=== PATIENT | female | born 1995 | race African-American/Black ===

== ENCOUNTER → 2023-05-24 11:02 | Outpatient (CLI) | payer OTHER, SELFPAY ==
--- NOTE | 2023-05-24 11:03 | DI.US.S_ITS ---
PROCEDURE: US OB <= 14 WEEKS FETUS INDICATIONS: DATING AND VIABILITY OUTSIDE/PRIOR DATING DATA: Last menstrual period (LMP): 03/12/2023. LMP-based estimated date of delivery (JANEE): 12/17/2023. First dating scan (date and location): 05/24/2023. Estimated date of delivery (JANEE) from first dating scan: 12/18/2023. TECHNIQUE: Real-time scanning was performed of the fetus and maternal pelvic organs, with image documentation. COMPARISON: None. FINDINGS: Embryo: Present, measuring 3.4 centimeters, corresponding to 10 weeks 2 days. Heart rate: 173 beats per minute. Maternal organs: Ovaries are unremarkable. IMPRESSION: Single living intrauterine at 10 weeks 2 days, JANEE of 12/18/2023. Findings are concordant with clinical dating. We strive to produce accurate, complete, and clear reports of imaging services. To assist us in improving patient care, this report was composed using standard report templates and voice recognition software. Therefore, it may contain abnormal punctuation, insertions and/or omissions. Occasional wrong-word or sound-alike substitutions may occur. Though we review the report and make efforts to correct it, we do recommend that the report be read carefully in proper context to recognize any text inaccuracies. Dictated by: Israel Walsh M.D. on 05/24/2023 at 12:10 Approved by: Israel Walsh M.D. on 05/24/2023 at 12:11
== END ==
PROVIDERS: Referring Provider Obstetrics & Gynecology; Visit Provider Obstetrics & Gynecology
DX: Z34.81 Encounter for supervision of other normal pregnancy, first trimester (principal); Z3A.10 10 weeks gestation of pregnancy
CPT/HCPCS: 76801

== ENCOUNTER → 2023-06-04 15:06 | Outpatient (CLI) | payer OTHER, SELFPAY ==
[2023-06-04 15:35] LABS: Specimen Label NATERA
[2023-06-04 15:43] LABS: Add Manual Diff / Slide Review NO; Basophils Absolute Auto 0 /uL (0-100); Basophils Percent Auto 0.3 % (0-2); Eosinophils Absolute Auto 100 /uL (0-450); Eosinophils Percent Auto 1.2 % (2-4); Hematocrit 35.3 % (36-46); Hemoglobin 11.8 g/dL (12.0-16.0); Lymphocytes Absolute Auto 2800 /uL (1100-4500); Lymphocytes Percent Auto 30.8 % (25-40); Mean Corpuscular HGB Conc 33.4 % (30-36); Mean Corpuscular Hemoglobin 27.8 PG (26-34); Mean Corpuscular Volume 83.1 fL (80-100); Monocytes Absolute Auto 700 /uL (0-900); Monocytes Percent Auto 7.6 % (3-14); Neutrophils Absolute Auto 5400 /uL (1500-7000); Neutrophils Percent Auto 60.1 % (50-75); Platelet Count 285 X10^3/uL (150-400); Red Blood Cell Count 4.24 X10^6/uL (4.0-5.2); Red Cell Distribution Width 14.9 % (11.6-14.8)
[2023-06-04 16:29] LABS: Hepatitis B Surface Antigen NEGATIVE s/c (NEGATIVE); Rubella Antibody IgG 52.8 IU/mL (>15)
[2023-06-04 16:43] LABS: HIV 1 & 2 Ab/Ag 4th Gen Combo NEGATIVE (NEGATIVE); Hep C Virus Ab w/Reflex Quant NEGATIVE s/c (NEGATIVE)
[2023-06-05 06:03] LABS: RPR Screen Non Reactive (Non Reactive)
[2023-06-05 10:09] LABS: Varicella IgG Antibody 386 index (Immune >165)
== END ==
PROVIDERS: Referring Provider Physician Assistant Medical; Visit Provider Physician Assistant Medical
DX: Z34.81 Encounter for supervision of other normal pregnancy, first trimester (principal)
CPT/HCPCS: 36415; 80055; 86787; 86803; 86850; 86900; 86901; 87389

== ENCOUNTER → 2023-06-28 16:48 | Outpatient (CLI) | payer OTHER, SELFPAY ==
[2023-06-28 17:28] LABS: Appearance Urine UA CLEAR; Bilirubin Urine UA NEGATIVE (NEGATIVE); Color Urine UA YELLOW; Glucose Urine UA NEGATIVE (Negative); Ketones Urine UA NEGATIVE (NEGATIVE); Leukocyte Esterase Urine UA 1+ (NEGATIVE); Nitrite Urine UA NEGATIVE (Negative); Occult Blood Urine UA NEGATIVE (Negative); Protein Urine UA NEGATIVE (Negative); Urobilinogen Urine UA 0.2 E.U./dL (0.2)
[2023-06-28 17:47] LABS: pH Urine UA 5.5 (4.5-8.0)
[2023-06-28 18:15] LABS: Bacteria Urine Few (2-10); RBC Urine None Seen (0-5/HPF); Squamous Epithelial Cell Urine 1-5 /HPF (0-5/HPF); WBC Urine 1-5/HPF (0-5/HPF)
== END ==
PROVIDERS: Referring Provider Obstetrics & Gynecology; Visit Provider Obstetrics & Gynecology
DX: R30.9 Painful micturition, unspecified (principal); R39.15 Urgency of urination; R30.0 Dysuria; Z34.81 Encounter for supervision of other normal pregnancy, first trimester
CPT/HCPCS: 81001; 87086

== ENCOUNTER → 2023-07-02 11:45 | Outpatient (CLI) | payer OTHER, SELFPAY ==
[2023-07-02 12:07] LABS: Specimen Label NATERA
[2023-07-03 15:34] LABS: Candida species Negative (Negative); Gardnerella vaginalis Positive (Negative); Trichomoas vaginalis Negative (Negative)
[2023-07-04 23:24] LABS: AFP Value 29.9 ng/mL (.); Gestational Age EDD (.); Insulin Dep Diabetes No (.); OSBR Risk 1IN 10000 (.); Results Report (.); Test Results *Screen Negative* (.)
[2023-07-05 09:09] LABS: PDF SCANNED
== END ==
PROVIDERS: Referring Provider Physician Assistant Medical; Visit Provider Physician Assistant Medical
DX: Z34.82 Encounter for supervision of other normal pregnancy, second trimester (principal); Z3A.16 16 weeks gestation of pregnancy; N89.8 Other specified noninflammatory disorders of vagina
CPT/HCPCS: 36415; 82105; 87480; 87510; 87660

== ENCOUNTER → 2023-07-18 15:44 | Outpatient (CLI) | payer OTHER, SELFPAY ==
--- NOTE | 2023-07-18 15:45 | DI.RAD.S_ITS ---
PROCEDURE: XR CHEST 2V INDICATIONS: Productive cough x4 weeks TECHNIQUE: 2 views of the chest were acquired. COMPARISON: None. FINDINGS: Surgical changes and devices: None. Lungs and pleura: Lungs are clear. No pleural effusions or pneumothorax. Mediastinum: Mediastinal contours are normal. Heart size is normal. Bones and chest wall: No suspicious bony abnormalities. Soft tissues appear unremarkable. IMPRESSION: No acute cardiopulmonary abnormality is seen. Approved by: Rod Naqvi M.D. on 07/18/2023 at 17:19
== END ==
PROVIDERS: Referring Provider Student in an Organized Health Care Education/Training Program; Visit Provider Student in an Organized Health Care Education/Training Program
DX: R05.8 Other specified cough (principal); Z34.90 Encounter for supervision of normal pregnancy, unspecified, unspecified trimester
CPT/HCPCS: 71046

== ENCOUNTER 2023-07-19 22:34 | Emergency (ER) | payer OTHER, SELFPAY ==
[2023-07-19 22:35] VITALS: BP 138/81; PULSE 124; RESP 20; TEMP 37.4; O2SAT 96; BMI 24.4
[2023-07-19 22:47] VITALS: BP 142/71; PULSE 121; RESP 26; O2SAT 97
[2023-07-19 23:00] VITALS: BP 132/68; PULSE 118; O2SAT 96
--- NOTE | 2023-07-19 23:15 | ED_ITS ---
HPI - General Adult General Chief complaint: Upper Respiratory Symptoms Stated complaint: cough for 1 month Time Seen by Provider: 07/19/23 22:43 Source: patient Mode of arrival: Ambulatory History of Present Illness HPI narrative: 28-year-old female. She is 18 weeks . She is here for evaluation of a cough for the past month. She is not having any vaginal bleeding or vaginal discharge. No other OB related complaints. She did have a chest x-ray yesterday ordered by her OB provider and is scheduled to see her OB provider tomorrow to discuss her cough. She denies any fevers. No underlying lung pathology. She is here because she states that her cough has been bad enough the past couple days she is now having some chest discomfort with the cough. She is having some sinus congestion Related Data Home Medications Medication Instructions Recorded Confirmed vitamin-ferrous sulfate tab PO 05/21/23 07/02/23 27 mg iron-folic acid 0.8 mg tablet Previous Rx's Medication Instructions Recorded ondansetron 4 mg disintegrating 4 mg PO Q6H PRN nausea and 06/28/23 tablet vomiting #30 tabs Allergies Allergy/AdvReac Type Severity Reaction Status Date / Time No Known Drug Allergies Allergy Unverified 07/02/23 10:49 Review of Systems ENT Ears, Nose, Mouth, and Throat: Reports system reviewed and no additional complaints, except as documented Cardiovascular Cardiovascular: Reports system reviewed and no additional complaints, except as documented Respiratory Respiratory: Reports system reviewed and no additional complaints, except as documented Gastrointestinal Gastrointestinal: Reports system reviewed and no additional complaints, except as documented Neurologic Neurologic: Reports system reviewed and no additional complaints, except as documented Patient History Surgical History (Updated 06/03/23 @ 20:09 by Raiza Schilling) Anesthesia History of surgical removal of ganglion cyst (~2012) Family History (Updated 05/21/23 @ 15:35 by Roya West RN) Father Diabetes mellitus Pacemaker Mother Diabetes mellitus Hypertension Osteoarthritis Grandmother Leukemia Social History marital status: number of children: 3 household members: spouse lives independently: No caregiver/support person: Yes housing: house pets and animals: No education level: college occupational status: employed current occupational exposures/hazards: No special garret needs: No travel history: recent seatbelt use: always water heater temp set < 120 deg: Yes working smoke detector in home: Yes fire extinguisher in home: No carbon monox detector in home: Yes firearms in home: No do you feel safe at home: Yes Smoking Status: Never smoker second hand exposure: No alcohol intake: former substance use type: does not use during the past year weight has: increased > 10 lbs well-balanced diet: rarely or never daily servings fruits/ve-1 caffeine: No Type(s) of exercise: walking Smoking Status: Never smoker Substance Use Type: does not use Exam Initial Vital Signs Initial Vital Signs: Vital Signs Temperature 99.3 F 07/19/23 22:35 Pulse Rate 124 H 07/19/23 22:35 Respiratory Rate 20 07/19/23 22:35 Blood Pressure 138/81 07/19/23 22:35 Pulse Oximetry 96 07/19/23 22:35 Oxygen Delivery Method Room Air 07/19/23 22:35 Const General: cooperative, comfortable and No ill appearing HENMT Head: normal to inspection and normocephalic Resp Effort & Inspection: normal respiratory effort, cough, not labored, no respiratory distress and not tachypneic Auscultation: clear to auscultation bilaterally Cardio Rate: tachycardic Rhythm: regular rhythm GI Inspection: normal to inspection Skin General: no rashes or lesions noted Neuro General: patient alert, patient awake and moves all extremities Extrem General: capillary refill normal Course Orders Ordered: ED Orders 07/19/23 22:54 EKG-12 Lead Stat 07/19/23 22:56 Respiratory Panel (Film Array) Stat Vital Signs Vital signs: Vital Signs - 8 hr 07/19/23 22:35 07/19/23 22:47 07/19/23 22:47 Temperature 99.3 F Pulse Rate 124 H 121 H Respiratory Rate 20 26 H Blood Pressure 138/81 142/71 H Pulse Oximetry 96 97 Oxygen Delivery Method Room Air 07/19/23 23:00 07/19/23 23:00 07/19/23 23:30 Temperature Pulse Rate 118 H 113 H Respiratory Rate 32 H Blood Pressure 132/68 Pulse Oximetry 96 97 Oxygen Delivery Method Room Air 07/19/23 23:30 07/19/23 23:41 07/19/23 23:41 Temperature Pulse Rate 117 H Respiratory Rate 22 Blood Pressure 134/71 141/74 H Pulse Oximetry 97 Oxygen Delivery Method Room Air 07/20/23 00:00 07/20/23 00:00 Temperature Pulse Rate 113 H Respiratory Rate Blood Pressure 135/71 Pulse Oximetry 96 Oxygen Delivery Method Medical Decision Making Medical Records Medical records reviewed: Yes I reviewed the patient's medical records. Lab Data Lab results reviewed: Yes I reviewed the patient's lab results. Labs: Lab Results 07/19/23 Range/Units 22:56 Chlamy pneumoniae PCR Not detected (Not Detect) Adenovirus (PCR) Not detected (Not Detect) B.parapertussis DNA PCR Not detected (Not Detecte) Coronavirus OC43 (PCR) Not detected (Not Detect) Coronavirus HKU1 (PCR) Not detected (Not Detect) Coronavirus 229E (PCR) Not detected (Not Detect) SARS-CoV-2 (PCR) Not detected (Not Detecte) Coronavirus NL63 (PCR) Not detected (Not Detect) Human Metapneumovir PCR Not detected (Not Detect) Influenza Type A (PCR) Not detected (Not Detect) Influenza Type B (PCR) Not detected (Not Detect) M. pneumoniae (PCR) Not detected (Not Detect) Parainfluenza 1 (PCR) Not detected (Not Detect) Parainfluenza 2 (PCR) Not detected (Not Detect) Parainfluenza 3 (PCR) Not detected (Not Detect) Parainfluenza 4 (PCR) Not detected (Not Detect) RSV (PCR) Not detected (Not Detect) Entero/Rhino (PCR) Detected (Not Detect) Imaging Data Chest x-ray: Radiologist's Impression: PROCEDURE: XR CHEST 2V INDICATIONS: Productive cough x4 weeks TECHNIQUE: 2 views of the chest were acquired. COMPARISON: None. FINDINGS: Surgical changes and devices: None. Lungs and pleura: Lungs are clear. No pleural effusions or pneumothorax. Mediastinum: Mediastinal contours are normal. Heart size is normal. Bones and chest wall: No suspicious bony abnormalities. Soft tissues appear unremarkable. IMPRESSION: No acute cardiopulmonary abnormality is seen. ECG Data Attestation: I personally reviewed and interpreted this ECG as follows: Interpretation: Sinus tachycardia Ventricular rate 117 Normal axis Normal QRS Normal QTC No ST T wave changes MDM Narrative Medical decision making narrative: Chest x-ray included in this note is for reference purposes only. It was performed yesterday. It was ordered by another provider and taken as an outpatient. It does show no acute pathology. She is tachycardic on her EKG but she states that since her she is has been tachycardic. She is p ositive for rhino virus. I did not feel the need to repeat a chest x-ray today since she just had 1 yesterday and because of her status. Lungs are clear. Not tachypneic. Because she is rhino virus positive and the length of time she is having symptoms and her the clinical presentation I do feel that a pulmonary embolism his unlikely. This is despite her tachycardia. I do feel that clinically it is most likely the rhino virus causing her symptoms and I do feel that obtaining a risks from the CT scan for outweigh any benefit or concern about a pulmonary embolism. Plan will be is for her to keep her appointment tomorrow with her OB provider to discuss symptomatic treatment. She was given return precautions. She expressed understanding and agreement. Discharge Plan Departure Patient Disposition: Home Clinical Impression: Rhinovirus, Cough Instructions: Cough (Alternative Therapy) Activity Restrictions/Additional Instructions: Your workup today is positive for rhino virus. This is a respiratory virus that definitely can cause the symptoms that you present with today. I recommend that you keep your appointment that she is scheduled tomorrow with your OB provider. You can discuss with them what they recommend as far as medications to try to help with your cough. Return to the emergency department for new symptoms. Prescriptions: No Action ondansetron 4 mg tablet,disintegrating 4 mg PO Q6H PRN (Reason: nausea and vomiting) Qty: 30 1RF vit-ferrous sulfat-FA 27 mg iron- 0.8 mg tablet PO Referrals: Jermaine Saldivar MD [Primary Care Provider] - Stand Alone Forms: Patient Portal/API
[2023-07-19 23:30] VITALS: BP 134/71; PULSE 113; RESP 32; O2SAT 97
[2023-07-19 23:41] VITALS: BP 141/74; PULSE 117; RESP 22; O2SAT 97
[2023-07-19 23:55] LABS: Adenovirus Not Detected (Not Detect); B. parapertussis Not Detected (Not Detecte); Bordetella pertussis Not Detected (Not Detect); Chlamydophila pneumoniae Not Detected (Not Detect); Coronavirus 229E Not Detected (Not Detect); Coronavirus HKU1 Not Detected (Not Detect); Coronavirus NL 63 Not Detected (Not Detect); Coronavirus OC43 Not Detected (Not Detect); Human Metapneumovirus Not Detected (Not Detect); Human Rhinovirus/Enterovirus Detected (Not Detect); Influenza A Not Detected (Not Detect); Influenza B Not Detected (Not Detect); Mycoplasma pneumoniae Not Detected (Not Detect); Parainfluenza Virus 1 Not Detected (Not Detect); Parainfluenza Virus 2 Not Detected (Not Detect); Parainfluenza Virus 3 Not Detected (Not Detect); Parainfluenza Virus 4 Not Detected (Not Detect); Respiratory Syncytial Virus Not Detected (Not Detect); SARS- CoV-2 Not Detected (Not Detecte)
[2023-07-20] VITALS: BP 135/71; PULSE 113; O2SAT 96
== END 2023-07-20 00:20 | disposition home or self-care (01) ==
PROVIDERS: Emergency Provider Emergency Medicine; PCP Family Medicine
DX: B34.8 Other viral infections of unspecified site (principal); R05.9 Cough, unspecified; R00.0 Tachycardia, unspecified; Z20.822 Contact with and (suspected) exposure to COVID-19
CPT/HCPCS: 87633; 93005; 99282; 99283

== ENCOUNTER → 2023-07-31 08:31 | Outpatient (CLI) | payer OTHER, SELFPAY ==
--- NOTE | 2023-07-31 08:32 | DI.US.S_ITS ---
PROCEDURE: US OB >= 14 WEEKS FETUS INDICATIONS: 20 wk anatomy OUTSIDE/PRIOR DATING DATA: Last menstrual period (LMP): 03/12/2023. LMP-based estimated date of delivery (JANEE): 12/17/2023. First dating scan (date and location): 05/24/2023. Estimated date of delivery (JANEE) from first dating scan: 12/18/2023. TECHNIQUE: Real-time scanning was performed of the fetus, with image documentation and biometric measurements. Endovaginal scanning: Not performed COMPARISON: [facility], OB <= 14 WEEKS FETUS, 05/24/2023, 11:18. FINDINGS: General: A single living intrauterine gestation is present. Presentation: Vertex. Placenta: Placental position is anterior , without previa. Amniotic fluid index: 17.5 cm, normal range is 5-24 cm. Single deepest vertical pocket is 6.0 cm. heart rate: 155 beats per minute. Maternal cervical canal: 3.5 cm long. Normal lower limit is 2.5 cm. biometrics: Biparietal diameter: 4.6 cm 19 weeks 6 days Head circumference: 17.7 cm 20 weeks 1 day Abdominal circumference: 15.3 cm 20 weeks 3 days Femur length: 3.0 cm 19 weeks 2 days estimated gestational age: 20 weeks 0 days Composite gestational age from present scan: 20 weeks 0 days Estimated weight and percentile: 323 g, 43rd percentile Anatomic survey: Neuro: Ventricles are non-dilated at less than 10 mm. Cisterna magna is normal at 3-11 mm. Cerebellum is normal in size and morphology. Nuchal skin fold: Normal at less than 6 mm between 14-21 weeks gestational age. Face: Nose and lips are normal. Profile not well visualized. Spine: No evidence for spina bifida. Heart: 4-chambered heart view and right ventricular outflow tract not well visualized. Left ventricular outflow tract within normal limits. Diaphragm: Diaphragm is intact. Stomach: Left-sided stomach is present. Kidneys: No hydronephrosis. Normal is less than 5 mm in 2nd trimester, less than 7 mm in 3rd trimester. Cord: 3-vessel cord has orthotopic insertion. Bladder: Normal in size. Extremities: All 4 extremities identified. IMPRESSION: 1. Single living intrauterine . 2. facial profile, four-chamber cardiac view, and right ventricular outflow tract not well visualized, attention on follow-up recommended. 3. Otherwise, visualized anatomy is within normal limits. We strive to produce accurate, complete, and clear reports of imaging services. To assist us in improving patient care, this report was composed using standard report templates and voice recognition software. Therefore, it may contain abnormal punctuation, insertions and/or omissions. Occasional wrong-word or sound-alike substitutions may occur. Though we review the report and make efforts to correct it, we do recommend that the report be read carefully in proper context to recognize any text inaccuracies. Dictated by: Kishore Saunders M.D. on 07/31/2023 at 14:32 Approved by: Kishore Saunders M.D. on 07/31/2023 at 14:45
== END ==
PROVIDERS: PCP Family Medicine; Referring Provider Physician Assistant Medical; Visit Provider Physician Assistant Medical
DX: Z34.82 Encounter for supervision of other normal pregnancy, second trimester (principal); Z3A.20 20 weeks gestation of pregnancy
CPT/HCPCS: 76811

== ENCOUNTER → 2023-08-27 10:57 | Outpatient (CLI) | payer OTHER, SELFPAY ==
--- NOTE | 2023-08-27 10:57 | DI.US.S_ITS ---
PROCEDURE: US OB FOLLOW UP INDICATIONS: FOLLOW UP PROFILE, 4CH AND RIGHT VENTRICULAR OUTFLOW TRACT OUTSIDE/PRIOR DATING DATA: Last menstrual period (LMP): 03/12/2023. LMP-based estimated date of delivery (JANEE): 12/17/2023 First dating scan (date and location): 05/24/2023 Estimated date of delivery (JANEE) from first dating scan: 12/18/2023. The calculations are made using the working JANEE of 12/17/2023. TECHNIQUE: Real-time scanning was performed of the fetus, with image documentation. Endovaginal scanning: Not performed COMPARISON: [facility], OB >= 14 WEEKS FETUS, 07/31/2023, 8:41. FINDINGS: A single living intrauterine gestation is present. Presentation: Vertex. Placenta: Placental position is anterior, without previa. Amniotic fluid index: 17.3 cm, normal range is 5-24 cm. Single deepest vertical pocket is 5.5 cm. heart rate: 143 beats per minute. Maternal cervical canal: 3.8 cm long. Normal lower limit is 2.5 cm. Clinically estimated gestational age: 24 weeks 0 days Other: profile and four-chamber view of the heart are within normal limits. outflow tracts not well seen secondary to lie IMPRESSION: 1. Living 2nd trimester intrauterine with no sonographic evidence of complications. 2. profile in four-chamber view of the heart are within normal limits. 3. On today's study, the outflow tracts are again not well visualized secondary to lie. Dictated by: Sandip Sparrow M.D. on 08/27/2023 at 14:22 Approved by: Sandip Sparrow M.D. on 08/27/2023 at 14:26
== END ==
PROVIDERS: PCP Family Medicine; Referring Provider Physician Assistant Medical; Visit Provider Physician Assistant Medical
DX: Z3A.24 24 weeks gestation of pregnancy; Z36.2 Encounter for other antenatal screening follow-up
CPT/HCPCS: 76816

== ENCOUNTER 2023-09-10 02:40 | Observation (INO) | payer OTHER, SELFPAY ==
--- NOTE | 2023-09-10 03:32 | DI.US.S_ITS ---
PROCEDURE: US OB LIMITED INDICATIONS: cervical length OUTSIDE/PRIOR DATING DATA: Last menstrual period (LMP): 03/12/2023. LMP-based estimated date of delivery (JANEE): 12/17/2023. First dating scan (date and location): 05/24/2023. Estimated date of delivery (JANEE) from first dating scan: 12/18/2023. The calculations are made using the clinical JANEE based on LMP of 12/17/2023. TECHNIQUE: Real-time scanning was performed of the fetus, with image documentation. COMPARISON: 08/27/2023, 07/31/2023, 05/24/2023 FINDINGS: A single living intrauterine gestation is present. Presentation: Breech. Placenta: Placental position is anterior, without previa. Amniotic fluid index: 17.8 cm, normal range is 5-24 cm. Single deepest vertical pocket is 6.1 cm. heart rate: 152 beats per minute. Maternal cervical canal: 4.6 cm long. Normal lower limit is 2.5 cm. Clinically estimated gestational age: 26 weeks, 0 day IMPRESSION: Single intrauterine gestation with estimated gestational age at 26 weeks 0 days. Cervix is closed and measures 4.6 centimeters in length. Findings are concordant with preliminary interpretation provided by [facility]. Dictated by: Daniella Loza M.D. on 09/10/2023 at 8:53 Approved by: Daniella Loza M.D. on 09/10/2023 at 8:58
--- NOTE | 2023-09-10 03:35 | PM.OBTRLD ---
Visit Information Visit Information Date of evaluation: 09/10/23 Primary OB Provider: Jermaine Saldivar On-call OB Provider: Yohana Higgins Reason for Evaluation: Yes pre-term labor Comments/Additional reasons for admission: 28YO @ 26 wks by LMP concurrent with early ultrasound brought in by ambulance for evaluation of abdominal and back pain. Has had abdominal pain since midnight that worsened to a sharp stabbing, intermittent pain, wrapping to her back. Pain was 10/10 and spouse called 911 around 0220. By the time EMS arrived, abdominal pain had improved, but back pain persists at 4/10. No vaginal bleeding or leaking of fluid. Has had intercourse in the last 24 hours. Routine OB care with . Vital Signs Vital Signs: BP 107/70, HR 97bpm, T 36.7C Temporal PFSH Surgical History Anesthesia History of surgical removal of ganglion cyst (~2012) Family History Father Diabetes mellitus Pacemaker Mother Diabetes mellitus Hypertension Osteoarthritis Grandmother Leukemia Social History marital status: number of children: 3 household members: spouse lives independently: No caregiver/support person: Yes housing: house pets and animals: No education level: college occupational status: employed current occupational exposures/hazards: No special garret needs: No travel history: recent seatbelt use: always water heater temp set < 120 deg: Yes working smoke detector in home: Yes fire extinguisher in home: No carbon monox detector in home: Yes firearms in home: No do you feel safe at home: Yes Smoking Status: Never smoker second hand exposure: No alcohol intake: former substance use type: does not use during the past year weight has: increased > 10 lbs well-balanced diet: rarely or never daily servings fruits/ve-1 caffeine: No Type(s) of exercise: walking Exam Vital Signs (past 8 hours): see above Objective Labs Labs: Evaluation Evaluation Baseline heart rate: 155 Contraction Frequency (minutes): 0 Cervical dilation (cm): 1 Cervical effacement (%): 25 station: -4 Comments: fFN collected and not sent Cervical length- 4.6cm No contractions per TOCO and patient for duration of monitoring Diagnosis, Plan/Disposition Final Diagnosis (1) Abdominal pain affecting : Status: Acute Plan/Disposition Plan: Pain resolved and UA and CL are normal. No explanation of pain. Patient is feeling well and ready to leave. Discharge to home. Follow-up with as previously scheduled. OB Disposition: home
[2023-09-10 03:37] LABS: Appearance Urine UA SL CLOUDY; Bilirubin Urine UA NEGATIVE (NEGATIVE); Color Urine UA YELLOW; Glucose Urine UA NEGATIVE (Negative); Ketones Urine UA NEGATIVE (NEGATIVE); Leukocyte Esterase Urine UA 2+ (NEGATIVE); Nitrite Urine UA NEGATIVE (Negative); Occult Blood Urine UA NEGATIVE (Negative); Protein Urine UA NEGATIVE (Negative); Specific Gravity Urine UA 1.015 (1.000-1.035); Urobilinogen Urine UA 0.2 E.U./dL (0.2)
[2023-09-10 03:55] LABS: Bacteria Urine Moderate (10-30); Culture Indicated Urine Specimen Cultured; RBC Urine None Seen (0-5/HPF); Squamous Epithelial Cell Urine 1-5 /HPF (0-5/HPF); WBC Urine 5-10/HPF (0-5/HPF)
[2023-09-10 04:36] LABS: Appearance Urine UA CLEAR; Bilirubin Urine UA NEGATIVE (NEGATIVE); Color Urine UA YELLOW; Glucose Urine UA NEGATIVE (Negative); Ketones Urine UA NEGATIVE (NEGATIVE); Leukocyte Esterase Urine UA TRACE (NEGATIVE); Nitrite Urine UA NEGATIVE (Negative); Occult Blood Urine UA NEGATIVE (Negative); Protein Urine UA NEGATIVE (Negative); Specific Gravity Urine UA <=1.005 (1.000-1.035); Urobilinogen Urine UA 0.2 E.U./dL (0.2)
[2023-09-10 04:50] LABS: Bacteria Urine None Seen; RBC Urine None Seen (0-5/HPF); Squamous Epithelial Cell Urine 0-1 /HPF (0-5/HPF); WBC Urine 0-1/HPF (0-5/HPF)
== END 2023-09-10 08:17 | disposition home or self-care (01) ==
PROVIDERS: Nurse Practitioner Obstetrics & Gynecology; Admitting Provider Family Medicine; PCP Family Medicine; Referring Provider Family Medicine; Visit Provider Family Medicine
DX: O26.892 Other specified pregnancy related conditions, second trimester (principal); R10.9 Unspecified abdominal pain; Z3A.26 26 weeks gestation of pregnancy; Z34.81 Encounter for supervision of other normal pregnancy, first trimester
CPT/HCPCS: 36415; 59025; 76815; 81001; 82950; 85014; 85018; 87086; G0378; G0379

== ENCOUNTER → 2023-09-10 08:18 | Outpatient (CLI) | payer OTHER, SELFPAY ==
[2023-09-10 10:14] LABS: GTT (PREG) 1 Hour PP 50gm Dose 170 mg/dL (76-139)
[2023-09-10 10:18] LABS: Hematocrit 33.1 % (36-46)
== END ==
PROVIDERS: PCP Family Medicine; Referring Provider Family Medicine; Visit Provider Family Medicine
DX: Z34.81 Encounter for supervision of other normal pregnancy, first trimester (principal)
CPT/HCPCS: 36415; 82950; 85014; 85018

== ENCOUNTER → 2023-09-20 07:47 | Outpatient (CLI) | payer OTHER, SELFPAY ==
[2023-09-20 08:45] LABS: Glucose Fasting 81 mg/dL (70-100)
[2023-09-20 10:11] LABS: Glucose 1 Hour 122 mg/dL (70-170)
[2023-09-20 11:01] LABS: Glucose Tol Interpretation INTERPRETATION
[2023-09-20 11:18] LABS: Glucose 2 Hour 108 mg/dL (70-140)
[2023-09-20 11:51] LABS: Glucose 3 Hour 100 mg/dL (70-115)
== END ==
PROVIDERS: PCP Family Medicine; Referring Provider Family Medicine; Visit Provider Family Medicine
DX: R73.09 Other abnormal glucose (principal)
CPT/HCPCS: 36415; 82951; 82952

== ENCOUNTER 2023-11-20 16:34 | Outpatient (CLI) | payer OTHER, SELFPAY ==
--- NOTE | 2023-11-20 17:06 | DI.US.S_ITS ---
PROCEDURE: US OB BIOPHYSICAL PROFILE INDICATIONS: patient fall OUTSIDE/PRIOR DATING DATA: Last menstrual period (LMP): 03/12/2023. LMP-based estimated date of delivery (JANEE): 12/17/2023. First dating scan (date and location): 05/24/2023. Estimated date of delivery (JANEE) from first dating scan: 12/18/2023. The calculations are made using the clinical LMP JANEE of 12/17/2023. TECHNIQUE: Real-time scanning was performed of the fetus, with image documentation and biometric measurements. Biophysical profile was also obtained. COMPARISON: Ultrasound 09/10/2023. FINDINGS: General: A single living intrauterine gestation is present. Presentation: Vertex. Placenta: Placental position is anterior , without previa. Amniotic fluid index: 24 cm, normal range is 5-24 cm. Single deepest vertical pocket is 8.4 cm. heart rate: 159 beats per minute. biometrics: Composite gestational age from present scan: 36 weeks, 1 day Biophysical profile: Tone: 2 points. Movement: 2 points. Respiration: 2 points. Largest pocket of fluid: 2 points. IMPRESSION: Single intrauterine gestation with vertex presentation. Normal biophysical profile. We strive to produce accurate, complete, and clear reports of imaging services. To assist us in improving patient care, this report was composed using standard report templates and voice recognition software. Therefore, it may contain abnormal punctuation, insertions and/or omissions. Occasional wrong-word or sound-alike substitutions may occur. Though we review the report and make efforts to correct it, we do recommend that the report be read carefully in proper context to recognize any text inaccuracies. Measurement variability for biometric dating: +/- 7 days from 14 weeks to 15 weeks 6 days gestation, +/- 10 days from 16 weeks to 21 weeks 6 days gestation, +/- 2 weeks from 22 weeks to 27 weeks 6 days gestation, +/- 3 weeks for 28 weeks gestation or later. weight reference: 4500 g or EFW >90/95% is considered macrosomia or large for gestational age. EFW <10% is small for gestational age. EFW 5% or less is considered intra-uterine growth restriction.>> Approved by: Daniella Loza M.D. on 11/21/2023 at 2:18
--- NOTE | 2023-11-21 07:21 | PM.OBTRLD ---
Visit Information Visit Information Date of evaluation: 11/20/23 Primary OB Provider: Jermaine Saldivar Reason for Evaluation: Yes other Comments/Additional reasons for admission: 28yo at [place] 36+1 weeks presents after fall earlier today. Was walking down stairs in home and slipped, fell on her buttocks and slid down the steps. Reports pain in her low back. Normal movement. No vaginal bleeding, leakage of fluid, or contractions. complicated by anemia (on iron supplement). [facility] Surgical History Anesthesia History of surgical removal of ganglion cyst (~2012) Family History Father Diabetes mellitus Pacemaker Mother Diabetes mellitus Hypertension Osteoarthritis Grandmother Leukemia Social History marital status: number of children: 3 household members: spouse lives independently: No caregiver/support person: Yes housing: house pets and animals: No education level: college occupational status: employed current occupational exposures/hazards: No special garret needs: No travel history: recent seatbelt use: always water heater temp set < 120 deg: Yes working smoke detector in home: Yes fire extinguisher in home: No carbon monox detector in home: Yes firearms in home: No do you feel safe at home: Yes Smoking Status: Never smoker second hand exposure: No alcohol intake: former substance use type: does not use during the past year weight has: increased > 10 lbs well-balanced diet: rarely or never daily servings fruits/ve-1 caffeine: No Type(s) of exercise: walking Objective Imaging US OB BIOPHYSICAL PROFILE: Radiologist's impression: INDICATIONS: patient fall OUTSIDE/PRIOR DATING DATA: Last menstrual period (LMP): 03/12/2023. LMP-based estimated date of delivery (JANEE): 12/17/2023. First dating scan (date and location): 05/24/2023. Estimated date of delivery (JANEE) from first dating scan: 12/18/2023. The calculations are made using the clinical LMP JANEE of 12/17/2023. TECHNIQUE: Real-time scanning was performed of the fetus, with image documentation and biometric measurements. Biophysical profile was also obtained. COMPARISON: Ultrasound 09/10/2023. FINDINGS: General: A single living intrauterine gestation is present. Presentation: Vertex. Placenta: Placental position is anterior , without previa. Amniotic fluid index: 24 cm, normal range is 5-24 cm. Single deepest vertical pocket is 8.4 cm. heart rate: 159 beats per minute. biometrics: Composite gestational age from present scan: 36 weeks, 1 day Biophysical profile: Tone: 2 points. Movement: 2 points. Respiration: 2 points. Largest pocket of fluid: 2 points. IMPRESSION: Single intrauterine gestation with vertex presentation. Normal biophysical profile. Evaluation Evaluation Baseline heart rate: 150 Variability: Moderate (11-25) monitor accelerations: Present Monitor Decelerations: Absent Category of Tracing: Reactive Status: Category l Diagnosis, Plan/Disposition Final Diagnosis (1) Traumatic injury during in third trimester: Status: Acute Plan/Disposition Plan: NST and BPP reassuring, no evidence of abruption on ultrasound or bleeding physical exam. Discharge home with return precautions for decreased movement, vaginal bleeding, severe abdominal pain. Okay to use Tylenol, heating blanket, massage/so can warm tub for back pain. OB Disposition: home
== END 2023-11-20 17:58 | disposition home or self-care (01) ==
LOC: LABOR 17:02 → OB 11-26 06:47
PROVIDERS: PCP Family Medicine; Referring Provider Family Medicine; Visit Provider Family Medicine
DX: O26.893 Other specified pregnancy related conditions, third trimester (principal); M54.50 Low back pain, unspecified; W10.9XXA Fall (on) (from) unspecified stairs and steps, initial encounter; Z3A.36 36 weeks gestation of pregnancy
CPT/HCPCS: 59025; 76819; G0378; G0379

== ENCOUNTER → 2023-11-21 08:42 | Outpatient (CLI) | payer OTHER, SELFPAY ==
[2023-11-23 08:30] LABS: Strep Grp B PCR NEG for Grp B Strep
== END ==
PROVIDERS: PCP Family Medicine; Referring Provider Family Medicine; Visit Provider Family Medicine
DX: Z34.80 Encounter for supervision of other normal pregnancy, unspecified trimester (principal)
CPT/HCPCS: 87653

== ENCOUNTER → 2023-11-28 12:14 | Outpatient (CLI) | payer OTHER, SELFPAY ==
[2023-11-28 12:52] LABS: Add Manual Diff / Slide Review NO; Basophils Absolute Auto 0 /uL (0-100); Basophils Percent Auto 0.3 % (0-2); Eosinophils Absolute Auto 100 /uL (0-450); Eosinophils Percent Auto 0.9 % (2-4); Hemoglobin 11.1 g/dL (12.0-16.0); Lymphocytes Absolute Auto 1300 /uL (1100-4500); Lymphocytes Percent Auto 17.9 % (25-40); Mean Corpuscular HGB Conc 32.7 % (30-36); Mean Corpuscular Hemoglobin 26.7 PG (26-34); Mean Corpuscular Volume 81.7 fL (80-100); Monocytes Absolute Auto 600 /uL (0-900); Monocytes Percent Auto 8.5 % (3-14); Neutrophils Absolute Auto 5100 /uL (1500-7000); Neutrophils Percent Auto 72.4 % (50-75); Platelet Count 233 X10^3/uL (150-400); Red Blood Cell Count 4.16 X10^6/uL (4.0-5.2); Red Cell Distribution Width 16.5 % (11.6-14.8); White Blood Cell Count 7.1 X10^3/uL (4.5-11.0)
[2023-11-28 13:20] LABS: Alanine Aminotransferase 13 IU/L (<35); Albumin 3.5 g/dL (3.5-5.0); Alkaline Phosphatase 130 U/L (38-126); Aspartate Aminotransferase 20 IU/L (14-36); BUN Creatinine Ratio 7.1 (6-22); Bilirubin Total 0.4 mg/dL (0.2-1.3); Blood Urea Nitrogen 3 mg/dL (7-17); Calcium 8.9 mg/dL (8.4-10.2); Carbon Dioxide 20 mmol/L (22-32); Chloride 105 mmol/L (98-107); Estimated Glomerular Filt Rate > 60 mL/min (>60); Globulin 3.5 g/dL (1.7-4.1); Glucose 78 mg/dL (70-100); HEMOLYSIS < 15 (0-50); Potassium 4.1 mmol/L (3.4-5.1); Sodium 134 mmol/L (137-145)
[2023-12-05 21:51] LABS: Chenodeoxycholic Acids 1.1 umol/L (.); Total Bile Acids 2.4 umol/L (.); Ursodeoxycholic Acids <0.10 umol/L (.)
== END ==
PROVIDERS: PCP Family Medicine; Referring Provider Family Medicine; Visit Provider Family Medicine
DX: O99.713 Diseases of the skin and subcutaneous tissue complicating pregnancy, third trimester (principal); L29.9 Pruritus, unspecified; O99.019 Anemia complicating pregnancy, unspecified trimester
CPT/HCPCS: 36415; 80053; 82542; 85025

== ENCOUNTER 2023-11-30 00:52 | Outpatient (CLI) | payer OTHER, SELFPAY | END 2023-11-30 02:27 | disposition home or self-care (01) | LOC: LABOR 00:57 → OB 12-03 08:26 | PROVIDERS: PCP Family Medicine; Referring Provider Obstetrics & Gynecology; Visit Provider Obstetrics & Gynecology | DX: O47.1 False labor at or after 37 completed weeks of gestation (principal); Z3A.29 29 weeks gestation of pregnancy | CPT/HCPCS: 59025; G0378; G0379 ==

== ENCOUNTER 2023-12-06 07:55 | Observation (INO) | payer OTHER, SELFPAY ==
--- NOTE | 2023-12-06 10:50 | P.TNLD_ITS ---
Visit Information Visit Information Date of evaluation: 12/06/23 Primary OB Provider: Jermaine Saldivar Reason for Evaluation: Yes rule out labor Comments/Additional reasons for admission: 28yo at [place] 38+3 wks presents for labor check w/ctx q5 min. +FM, no vb or lof. PFSH Surgical History Anesthesia History of surgical removal of ganglion cyst (~2012) Family History Father Diabetes mellitus Pacemaker Mother Diabetes mellitus Hypertension Osteoarthritis Grandmother Leukemia Social History marital status: number of children: 3 household members: spouse lives independently: No caregiver/support person: Yes housing: house pets and animals: No education level: college occupational status: employed current occupational exposures/hazards: No special garret needs: No travel history: recent seatbelt use: always water heater temp set < 120 deg: Yes working smoke detector in home: Yes fire extinguisher in home: No carbon monox detector in home: Yes firearms in home: No do you feel safe at home: Yes Smoking Status: Never smoker second hand exposure: No alcohol intake: former substance use type: does not use during the past year weight has: increased > 10 lbs well-balanced diet: rarely or never daily servings fruits/ve-1 caffeine: No Type(s) of exercise: walking Evaluation Evaluation Baseline heart rate: 150 Variability: Moderate (11-25) monitor accelerations: Present Monitor Decelerations: Absent Contraction Frequency (minutes): 4 Category of Tracing: Reactive Status: Category l Cervical dilation (cm): 3.5 Cervical effacement (%): 80 station: -2 Comments: Exam per L&D RN Diagnosis, Plan/Disposition Final Diagnosis (1) False labor after 37 completed weeks of gestation: Status: Acute Plan/Disposition Plan: Regular ctx but no cervical change attendant 1 hour monitoring, remains same as yesterday's exam in clinic. Discharge home w/return precautions for strong/frequent ctx, bleeding, leakage of fluid, decreased FM. OB Disposition: home
== END 2023-12-06 11:06 | disposition home or self-care (01) ==
PROVIDERS: Admitting Provider Family Medicine; PCP Family Medicine; Referring Provider Family Medicine; Visit Provider Family Medicine
DX: O47.1 False labor at or after 37 completed weeks of gestation (principal); Z3A.38 38 weeks gestation of pregnancy
CPT/HCPCS: 59025; G0378; G0379

== ENCOUNTER 2023-12-10 17:45 | Observation (INO) | payer OTHER, SELFPAY ==
[2023-12-10] MEDS: MORPHINE 10 MG/ML INJ IM (19:22)
[2023-12-10] MEDS: PROMETHAZINE 25 MG TABLET PO (19:22)
--- NOTE | 2023-12-10 23:16 | PM.OBTRLD ---
Visit Information Visit Information Date of evaluation: 12/10/23 Primary OB Provider: Jermaine Saldivar Reason for Evaluation: Yes rule out labor Comments/Additional reasons for admission: 28yo at [place] 39+0 wks presents for labor check w/ctx q3-4 min. +FM, no vb or lof. PFSH Surgical History Anesthesia History of surgical removal of ganglion cyst (~2012) Family History Father Diabetes mellitus Pacemaker Mother Diabetes mellitus Hypertension Osteoarthritis Grandmother Leukemia Social History marital status: number of children: 3 household members: spouse lives independently: No caregiver/support person: Yes housing: house pets and animals: No education level: college occupational status: employed current occupational exposures/hazards: No special garret needs: No travel history: recent seatbelt use: always water heater temp set < 120 deg: Yes working smoke detector in home: Yes fire extinguisher in home: No carbon monox detector in home: Yes firearms in home: No do you feel safe at home: Yes Smoking Status: Never smoker second hand exposure: No alcohol intake: former substance use type: does not use during the past year weight has: increased > 10 lbs well-balanced diet: rarely or never daily servings fruits/ve-1 caffeine: No Type(s) of exercise: walking Review of Systems Review of Systems ROS: Yes All systems reviewed with the patient and are negative except as otherwise documented Evaluation Evaluation Baseline heart rate: 130 Variability: Moderate (11-25) monitor accelerations: Present Monitor Decelerations: Absent Contraction Frequency (minutes): 4 Uterine Contraction Intensity: Mild Category of Tracing: Reactive Status: Category l Cervical dilation (cm): 4 Cervical effacement (%): 80 station: -2 Non-invasive Membranes Rupture Test: negative Comments: Exam and ROM result per L&D RN Diagnosis, Plan/Disposition Final Diagnosis (1) False labor after 37 completed weeks of gestation: Status: Acute Plan/Disposition Plan: Regular ctx but no cervical change since last exam 4 days, pt declines remaining on site for additional monitoring. She does express a degree of stress due to still having to work this late in , provided letter excusing from work duties. Morphine/phenergan for pain relief and sleep. Discharge home w/return precautions for strong/frequent ctx, bleeding, leakage of fluid, decreased FM. OB Disposition: home
== END 2023-12-10 19:30 | disposition home or self-care (01) ==
LOC: LABOR 17:48
PROVIDERS: Admitting Provider Family Medicine; PCP Family Medicine; Referring Provider Family Medicine; Visit Provider Family Medicine
DX: O47.1 False labor at or after 37 completed weeks of gestation (principal); Z3A.39 39 weeks gestation of pregnancy
CPT/HCPCS: 59025; 84112; G0378; G0379; J2270

== ENCOUNTER 2023-12-11 01:58 | Inpatient (IN) | payer OTHER, SELFPAY ==
--- NOTE | 2023-12-11 02:59 | PM.OBHP.IH.1 ---
OB HPI Date/Time Date of admission: 12/11/23 Date Patient Seen: 12/11/23 Time Patient Seen: 02:59 History of Present Condition Chief complaint: OB JANEE Calculator Estimated Delivery Date Method Current WG Current Estimate 12/17/23 LMP (Certain) 39w 1d Estimated Gestational Age (weeks): 39+1 : 4 Para: 3 Narrative: 28-year-old at GA 39+1 presenting with contractions. Seen here a few hours ago for labor evaluation, cervix was unchanged at that time and discharged home after administration of analgesia for therapeutic rest. Reports contractions diminished at that time but returned around 2330 and have been strong/consistent since then. Endorses normal movement. Denies vaginal bleeding, leakage of fluid. c/b anemia on iron supplement. care: good care Dating criteria OB: LMP confirmed by 1st trimester US Ultrasounds: normal 1st trimester US and normal mid trimester US Obstetrical complications: other (anemia of ) Preadmission Labs Last OB Lab Results: Blood Type A Positive 12/11/23 03:10 Antibody Screen Negative 12/11/23 03:10 Hematocrit 35.0 % (36-46) L 12/11/23 03:10 Hemoglobin 11.6 g/dL (12.0-16.0) L 12/11/23 03:10 Hepatitis B Surface Antigen Negative s/c (NEGATIVE) 06/04/23 15:20 Hepatitis C Antibody Negative s/c (NEGATIVE) 06/04/23 15:20 Rubella Antibody 52.8 IU/mL (>15) 06/04/23 15:20 Varicella-Zoster IgG Antibody 386 index (Immune >165) 06/04/23 15:20 Glucose 1 Hour 170 mg/dL (76-139) H 09/10/23 09:28 Group B Streptococcus (PCR) Neg for grp b strep 11/21/23 11:35 Glucose Tolerance Testin hr (normal) -: Chlamydia screen: negative and Gonorrhea screen: negative -: PAP smear: Normal Genetic Screens: Quad screen: Normal and Cell-free DNA: Normal Prior (ies) Past Pregnancies Del. Date GA/Weeks Labor Lgth Wt Sex Route Outcome Anesthesia Place Delv Breastfeed Preg Comp Name 03/09/12 37+ 2 6 lb 9 oz Female vaginal live - full term [place], [place] 3 years other Chari 07/13/19 39 7 7 lb 5 oz Male vaginal live - full term [place], [place] 18 years none Tomás 03/28/21 39 7 8 lb 2 oz Male vaginal live - full term [place], [place] 2+ years none Caesar Delivery Date: 03/09/12 Last Updated by: Roya West RN Contracted varicella in , no sequalae Evaluation Evaluation Baseline heart rate: 150 Variability: Moderate (11-25) monitor accelerations: Present Monitor Decelerations: Absent Contraction Frequency (minutes): 2 Uterine Contraction Intensity: Moderate Category of Tracing: Reactive Status: Category l Dilation (cm): 8 Effacement (%): 90 station: -1 Comments: Exam per L&D RN [facility] Surgical History Anesthesia History of surgical removal of ganglion cyst (~2012) Family History Father Diabetes mellitus Pacemaker Mother Diabetes mellitus Hypertension Osteoarthritis Grandmother Leukemia Social History marital status: number of children: 3 household members: spouse lives independently: No caregiver/support person: Yes housing: house pets and animals: No education level: college occupational status: employed current occupational exposures/hazards: No special garret needs: No travel history: recent seatbelt use: always water heater temp set < 120 deg: Yes working smoke detector in home: Yes fire extinguisher in home: No carbon monox detector in home: Yes firearms in home: No do you feel safe at home: Yes Smoking Status: Never smoker second hand exposure: No alcohol intake: former substance use type: does not use during the past year weight has: increased > 10 lbs well-balanced diet: rarely or never daily servings fruits/ve-1 caffeine: No Type(s) of exercise: walking Meds Home Medications and Allergies Home Medications Medication Instructions Recorded Confirmed Type vitamin-ferrous sulfate tab PO 05/21/23 12/05/23 History 27 mg iron-folic acid 0.8 mg tablet ferrous sulfate 325 mg (65 mg 325 mg PO Q OTHER DAY 3 months #45 09/25/23 12/05/23 Rx iron) tablet tabs Allergies Allergy/AdvReac Type Severity Reaction Status Date / Time No Known Drug Allergies Allergy Unverified 12/05/23 11:22 Review of Systems Review of Systems ROS: Yes All systems reviewed with the patient and are negative except as otherwise documented OB Exam Narrative Exam Narrative: General: Well-nourished, no distress HEENT: NC/AT, EOMI, moist mucous membranes CV: RRR, normal S1 S2, no m/g/r Resp: CTAB Abd: Gravid, soft, NTND, +BS Ext: Full ROM, no edema Skin: No rash or lesions Neuro: A&O x3, normal tone, no focal deficits Objective Labs 12/11/23 03:10 Assessment and Plan Assessment and Plan Assessment and Plan narrative: 28-year-old at [place] 39+1 weeks in labor. -admit to L&D -GBS neg, ppx not indicated -pain control prn if desired by patient -PPH risk low -VTE risk low, SCDs with epidural -anticipate vaginal delivery Time Spent with Patient Total time spent with greater than 50% in coordination of care (as documented) at patient's floor/unit and/or counseling patient:: 15-24 minutes
[2023-12-11 03:31] LABS: Add Manual Diff / Slide Review NO; Basophils Absolute Auto 100 /uL (0-100); Basophils Percent Auto 0.4 % (0-2); Eosinophils Absolute Auto 100 /uL (0-450); Eosinophils Percent Auto 0.9 % (2-4); Hemoglobin 11.6 g/dL (12.0-16.0); Lymphocytes Absolute Auto 2100 /uL (1100-4500); Mean Corpuscular Hemoglobin 26.5 PG (26-34); Mean Corpuscular Volume 80.4 fL (80-100); Monocytes Absolute Auto 1000 /uL (0-900); Monocytes Percent Auto 6.7 % (3-14); Neutrophils Absolute Auto 11000 /uL (1500-7000); Platelet Count 242 X10^3/uL (150-400); Red Blood Cell Count 4.36 X10^6/uL (4.0-5.2); Red Cell Distribution Width 16.5 % (11.6-14.8); White Blood Cell Count 14.3 X10^3/uL (4.5-11.0)
[2023-12-11 04:41] VITALS: BP 134/85; PULSE 140; RESP 16; TEMP 37.1
--- NOTE | 2023-12-11 08:09 | P.PCNOB_ITS ---
Events: Meconium Stained Fluid Labor & Delivery Delivery date: 12/11/23 Delivery augmentation: rupture of membranes Delivery monitor: external FHT and external uterine L&D Laceration Description: Vaginal - 1st Degree (left sidewall) Quantitative Blood Loss: 275 Anesthesia Type: None Narrative: Patient fully dilated at 6:00 a.m. and began pushing at 6:10 a.m.. Spontaneous vaginal delivery of a viable female infant in the STEWART position with compound hand presentation occurred at 6:25 a.m. This involved an approximately 80 second shoulder dystocia during which Juan C maneuver was initiated and the right/posterior arm which was already presenting was swept and released. This allowed delivery of the anterior shoulder and the body followed without difficulty. The was suctioned and stimulated at the perineum, and gave appropriate cry with movement of all extremities. Delayed cord clamping was observed for 60 seconds. The cord was clamped and cut, and the was then taken to the warmer for additional suctioning of airway. After sufficient fluid cleared from the airway she was handed to mother for skin to skin. Cord blood and segment were obtained. The placenta was delivered without difficulty using gentle cord traction and found to be intact with a 3-vessel cord. After fundal massage the uterus was firm and bleeding stopped. The vagina and cervix were examined for lacerations. A first-degree left vaginal sidewall laceration was noted to be hemostatic and not repaired. Patient stable. [place] Baby 1: Infant gender: Female Presentation: vertex Position: Right Occiput Anterior Placenta delivery description: Spontaneous Cord Vessel Description: 3 Vessels score (1 min): 7 score (5 min): 8 weight: 8 lb 10.344 oz Plan for aftercare: Routine care
[2023-12-11] MEDS: IBUPROFEN 600 MG TABLET PO ×3 (08:28→20:39)
[2023-12-11] MEDS: DOCUSATE 100 MG CAPSULE PO (08:28)
[2023-12-11] MEDS: PRENATAL VIT,CALC/IRON/FOLIC 1 TABLET 1 TAB PO (08:29)
[2023-12-11 10:41] VITALS: BP 134/85; PULSE 140; RESP 16; TEMP 37.1
[2023-12-11] MEDS: ACETAMINOPHEN 325 MG TABLET 650 MG PO ×3 (11:20→20:38)
[2023-12-12 06:46] LABS: Hemoglobin 10.4 g/dL (12.0-16.0)
[2023-12-12] MEDS: PRENATAL VIT,CALC/IRON/FOLIC 1 TABLET 1 TAB PO (08:00)
[2023-12-12] MEDS: DOCUSATE 100 MG CAPSULE PO (08:00)
[2023-12-12] MEDS: IBUPROFEN 600 MG TABLET PO (08:00)
--- NOTE | 2023-12-12 12:46 | P.DS_ITS ---
Discharge Providers Provider Date of admission: 12/11/23 01:58 Discharge Date: 12/12/23 Primary care physician: Jermaine Saldivar MD Consults: 12/12/23 08:01 Consult to Front Elevator Operator Routine Comment: Discharge provider: Jermaine Saldivar MD Summary Hospital Course Date Patient Seen: 12/12/23 Time Patient Seen: 12:45 Diagnoses: Normal labor Hospital Course: Admitted for normal labor on 12/11/2023. Progressed adequately without augmentation to complete dilation over the course of four hours. She had an uncomplicated of a live female infant with a first-degree vaginal laceration that did not require repair. Her course was uncomplicated. At discharge patient is ambulating well, tolerating normal diet, breast-feeding without difficulty, and pain is adequately controlled. She reports bleeding is similar to menses without clots or large gushes. Peripartum Data Infant Delivery Method: Natural Vaginal Laceration Description: Vaginal - 1st Degree complications: none [place] 1: Gender: Female Disposition of : home Discharge Diagnosis (1) (spontaneous vaginal delivery): Start Date: 12/11/23 Status: Acute Status at Discharge Cognitive/behavioral status at discharge: at baseline, oriented Functional status at discharge: independent ambulation Time Spent with Patient Time attestation: Total time spent providing and/or coordinating discharge services: 25 minutes Objective Labs 12/12/23 06:28 Labs: Laboratory Results - last 24 hr 12/12/23 06:28 Hgb 10.4 L Hct 32.0 L Exam Narrative Exam Narrative: General: Well-appearing, well-nourished, no distress HEENT: Moist mucous membranes, no pallor CV: Regular rate and rhythm, no murmur auscultated Resp: CTAB, comfortable work of breathing Abdomen: Soft, bowel sounds present, fundus firm below umbilicus with appropriate tenderness Extremities: No edema, well-perfused, no calf tenderness or evidence of DVT Discharge Plan Discharge Plan Patient Disposition: Home Discharge orders & Medications Prescriptions: New docusate sodium 100 mg Capsule 100 mg PO DAILY Qty: 30 1RF ibuprofen 600 mg Tablet 600 mg PO Q6HR PRN (Reason: Pain, Mild (1-3)) Qty: 60 1RF Purelan Cream 1 applic topical PRN PRN (Reason: Tenderness) Qty: 7 2RF Continued ferrous sulfate 325 mg (65 mg iron) tablet 325 mg PO Q OTHER DAY 90 Days Qty: 45 1RF vit-ferrous sulfat-FA 27 mg iron- 0.8 mg tablet PO Follow up/Referrals: Jermaine Saldivar MD [Primary Care Provider] - (Appointment with on Thrus,January at 11:00 am) Diet/Activity/Treatments Diet: Regular Visit Report/Discharge Packet Instructions: DI for Labor and Delivery, Vaginal Stand Alone Forms: Patient Portal/API, Stroke Signs & Symptoms Discharge Data Primary Care Provider: Jermaine Saldivar Discharges patient from system. Discharge Date/Time: 12/12/23 14:51
== END 2023-12-12 14:51 | disposition home or self-care (01) | DRG 807 ==
PROVIDERS: Admitting Provider Obstetrics & Gynecology; PCP Family Medicine; Referring Provider Obstetrics & Gynecology; Visit Provider Obstetrics & Gynecology
DX: O80 Encounter for full-term uncomplicated delivery (principal); Z37.0 Single live birth; Z3A.39 39 weeks gestation of pregnancy
CPT/HCPCS: 36415; 59050; 59400; 85014; 85018; 85025; 86850; 86900; 86901; G0379

== ENCOUNTER → 2023-12-13 16:35 | Outpatient (CLI) | payer OTHER, SELFPAY ==
[2023-12-13 17:41] LABS: Add Manual Diff / Slide Review NO; Basophils Absolute Auto 100 /uL (0-100); Basophils Percent Auto 0.6 % (0-2); Eosinophils Absolute Auto 600 /uL (0-450); Eosinophils Percent Auto 4.7 % (2-4); Hematocrit 33.8 % (36-46); Hemoglobin 11.1 g/dL (12.0-16.0); Lymphocytes Absolute Auto 3200 /uL (1100-4500); Lymphocytes Percent Auto 23.2 % (25-40); Mean Corpuscular HGB Conc 32.8 % (30-36); Mean Corpuscular Hemoglobin 26.3 PG (26-34); Mean Corpuscular Volume 80.3 fL (80-100); Monocytes Absolute Auto 700 /uL (0-900); Monocytes Percent Auto 5.1 % (3-14); Neutrophils Absolute Auto 9300 /uL (1500-7000); Neutrophils Percent Auto 66.4 % (50-75); Platelet Count 259 X10^3/uL (150-400); Red Blood Cell Count 4.22 X10^6/uL (4.0-5.2); Red Cell Distribution Width 16.6 % (11.6-14.8); White Blood Cell Count 13.9 X10^3/uL (4.5-11.0)
[2023-12-13 18:52] LABS: Alanine Aminotransferase 27 IU/L (<35); Albumin 3.4 g/dL (3.5-5.0); Alkaline Phosphatase 110 U/L (38-126); Aspartate Aminotransferase 28 IU/L (14-36); Bilirubin Total 0.3 mg/dL (0.2-1.3); Blood Urea Nitrogen 9 mg/dL (7-17); Calcium 9.3 mg/dL (8.4-10.2); Carbon Dioxide 25 mmol/L (22-32); Chloride 107 mmol/L (98-107); Estimated Glomerular Filt Rate > 60 mL/min (>60); Globulin 3.5 g/dL (1.7-4.1); Glucose 69 mg/dL (70-100); HEMOLYSIS < 15 (0-50); Sodium 135 mmol/L (137-145); Total Protein 6.9 g/dL (6.3-8.2)
[2023-12-13 20:03] LABS: Creatinine Urine Random 38.2 mg/dL
[2023-12-13 20:26] LABS: Protein (Total) Urine Random 21 mg/dL (0-12); Protein Creatinine Ratio Urine 0.54 GRAM/24H
== END ==
PROVIDERS: PCP Family Medicine; Referring Provider Family Medicine; Visit Provider Family Medicine
DX: O12.05 Gestational edema, complicating the puerperium (principal); R03.0 Elevated blood-pressure reading, without diagnosis of hypertension
CPT/HCPCS: 36415; 80053; 82570; 84156; 85025

== ENCOUNTER 2024-10-15 07:25 | Emergency (ER) | payer OTHER, SELFPAY ==
[2024-10-15] VITALS (7 sets, daily range): BP systolic 99–129; BP diastolic 55–75; PULSE 83–92; RESP 16; TEMP 37.1; O2SAT 97–100; BMI 25.0
--- NOTE | 2024-10-15 08:10 | ED_ITS ---
HPI - Abdominal Pain General Chief Complaint: Abdominal Pain Stated Complaint: Abdominal pain radiating to back Time Seen by Provider: 10/15/24 08:05 History of Present Illness HPI narrative: Patient here for right-sided abdominal pain radiating to right mid back. Has had nausea and vomiting since 1:00 a.m. this morning. Has had off and on right upper quadrant pain for the past couple of months. Denies any prior abdominal surgical history. No urinary complaints. Denies . Related Data Home Medications Medication Instructions Recorded Confirmed vitamin-ferrous sulfate tab PO 05/21/23 01/23/24 27 mg iron-folic acid 0.8 mg tablet Previous Rx's Medication Instructions Recorded ferrous sulfate 325 mg (65 mg 325 mg PO Q OTHER DAY 3 months #45 09/25/23 iron) tablet tabs docusate sodium 100 mg capsule 100 mg PO DAILY #30 caps 12/12/23 ibuprofen 600 mg tablet 600 mg PO Q6HR PRN Pain, Mild 12/12/23 (1-3) #60 tabs lanolin (Purelan topical cream) 1 applic topical PRN PRN 12/12/23 Tenderness #7 grams hydrocodone 5 mg-acetaminophen 325 1 tab PO Q6H PRN pain #10 tabs 10/15/24 mg tablet ondansetron 4 mg disintegrating 4 mg PO Q8H PRN nausea and 10/15/24 tablet vomiting #10 tabs Allergies Allergy/AdvReac Type Severity Reaction Status Date / Time No Known Drug Allergies Allergy Verified 01/23/24 10:50 Review of Systems Review of Systems Narrative: GENERAL: Negative chills, fatigue, malaise, fever, sweats. HEENT: Negative sinus pain, ear pain, sore throat RESPIRATORY: Negative dyspnea, cough CARDIOVASCULAR: Negative chest pain, palpitations GASTROINTESTINAL: Positive nausea, vomiting, abdominal pain : Negative dysuria, frequency, hematuria MUSCULOSKELETAL: Negative muscle or bony pain SKIN: Negative rash, skin lesions NEUROLOGIC: Negative weakness, numbness ROS Unobtainable: All systems reviewed & are unremarkable except as noted in HPI and below Patient History Surgical History Anesthesia History of surgical removal of ganglion cyst (~2012) Family History Father Diabetes mellitus Pacemaker Mother Diabetes mellitus Hypertension Osteoarthritis Grandmother Leukemia Social History marital status: number of children: 3 household members: spouse lives independently: No caregiver/support person: Yes housing: house pets and animals: No education level: college occupational status: employed current occupational exposures/hazards: No special garret needs: No travel history: recent seatbelt use: always water heater temp set < 120 deg: Yes working smoke detector in home: Yes fire extinguisher in home: No carbon monox detector in home: Yes firearms in home: No do you feel safe at home: Yes Smoking Status: Never smoker second hand exposure: No alcohol intake: former substance use type: does not use during the past year weight has: increased > 10 lbs well-balanced diet: rarely or never daily servings fruits/ve-1 caffeine: No Type(s) of exercise: walking Smoking Status: Never smoker Exam Narrative Exam Narrative: GENERAL: in no distress, not toxic not dyspneic HEAD: Normocephalic. EYES: Pupils equal round ENT: Mucous membranes moist. NECK: Trachea midline. CARDIOVASCULAR: Regular rate and rhythm RESPIRATORY: Clear to auscultation. Breath sounds equal bilaterally. No wheezes, rales, or rhonchi. GASTROINTESTINAL: Abdomen soft, nontender epigastric region. Reproducible right upper quadrant tenderness with positive Miller sign. No guarding or rebound. No pain out of portion to exam. Negative McBurney point tenderness. Bowel sounds are present. No peritoneal signs. No CVA tenderness. EXTREMITIES: No gross deformities. BACK: No flank tenderness. NEURO: AOx4. SKIN: Warm and dry PSYCH: Not anxious, is cooperative Initial Vital Signs Initial Vital Signs: Vital Signs Temperature 98.7 F 10/15/24 07:42 Pulse Rate 92 H 10/15/24 07:42 Respiratory Rate 16 10/15/24 07:42 Blood Pressure 129/75 10/15/24 07:42 Pulse Oximetry 97 10/15/24 07:42 Oxygen Delivery Method Room Air 10/15/24 07:42 Course Orders Ordered: Discontinued Medications Sodium Chloride (Normal Saline 0.9%) 500 mls @ 1,000 mls/hr IV BOLUS ONE Stop: 10/15/24 08:39 Last Infusion: 10/15/24 12:07 Dose: Infused Documented By: Admin: 10/15/24 08:47 Dose: 1,000 mls/hr Documented By: HELENA(2) Morphine Sulfate (Morphine 4 Mg/Ml Inj) 4 mg IV NOW ONE Stop: 10/15/24 08:10 Last Admin: 10/15/24 08:46 Dose: 4 mg Documented By: HELENA(2) Ondansetron HCl (Ondansetron 4 Mg/2 Ml Inj) 4 mg IV NOW PRN PRN Reason: Nausea And Vomiting Last Admin: 10/15/24 08:46 Dose: 4 mg Documented By: HELENA(2) Ondansetron HCl (Ondansetron 4 Mg Odt) 4 mg PO NOW PRN PRN Reason: Nausea And Vomiting Vital Signs Vital signs: Vital Signs - 8 hr 10/15/24 07:42 10/15/24 08:54 10/15/24 08:55 Temperature 98.7 F Pulse Rate 92 H 85 85 Respiratory Rate 16 Blood Pressure 129/75 Pulse Oximetry 97 99 99 Oxygen Delivery Method Room Air 10/15/24 08:55 10/15/24 09:00 10/15/24 09:00 Temperature Pulse Rate 87 Respiratory Rate Blood Pressure 102/60 118/69 Pulse Oximetry 100 Oxygen Delivery Method 10/15/24 09:30 10/15/24 09:30 10/15/24 10:00 Temperature Pulse Rate 83 84 Respiratory Rate Blood Pressure 104/56 L Pulse Oximetry 100 100 Oxygen Delivery Method 10/15/24 10:00 10/15/24 10:30 10/15/24 10:30 Temperature Pulse Rate 89 Respiratory Rate Blood Pressure 104/62 99/55 L Pulse Oximetry 98 Oxygen Delivery Method MDM - Abdominal Pain Lab Data 10/15/24 08:05 10/15/24 08:05 Labs: Lab Results 10/15/24 Range/Units 08:05 WBC 14.5 H (4.5-11.0) X10^3/uL RBC 4.45 (4.0-5.2) X10^6/uL Hgb 12.2 (12.0-16.0) g/dL Hct 38.0 (36-46) % MCV 85.5 (80-100) fL MCH 27.5 (26-34) PG MCHC 32.2 (30-36) % RDW 15.2 H (11.6-14.8) % Plt Count 355 (150-400) X10^3/uL Neut % (Auto) 84.3 H (50-75) % Lymph % (Auto) 11.1 L (25-40) % [place] % (Auto) 3.8 (3-14) % Eos % (Auto) 0.2 L (2-4) % Baso % (Auto) 0.6 (0-2) % Neut # (Auto) 21335 H (4193-8883) /uL Lymph # (Auto) 1600 (5213-6584) /uL [place] # (Auto) 500 (0-900) /uL Eos # (Auto) 0 (0-450) /uL Baso # (Auto) 100 (0-100) /uL Sodium 140 (137-145) mmol/L Potassium 4.5 (3.4-5.1) mmol/L Chloride 107 (98-107) mmol/L Carbon Dioxide 25 (22-32) mmol/L BUN 12 (7-17) mg/dL Creatinine 0.60 (0.52-1.04) mg/dL Estimated GFR > 60 (>60) mL/min BUN/Creatinine Ratio 20.0 (6-22) Glucose 121 H (70-100) mg/dL Calcium 9.3 (8.4-10.2) mg/dL Total Bilirubin 0.4 (0.2-1.3) mg/dL AST 24 (14-36) IU/L ALT 23 (<35) IU/L Alkaline Phosphatase 69 (38-126) U/L Total Protein 8.7 H (6.3-8.2) g/dL Albumin 4.9 (3.5-5.0) g/dL Globulin 3.8 (1.7-4.1) g/dL Albumin/Globulin Ratio 1.3 (1.0-2.8) Lipase 175 (23-300) U/L Ur Bilirubin Confirm Negative (Negative) Urine RBC None seen (0-5/HPF) Urine WBC 0-1/hpf (0-5/HPF) Ur Squamous Epith Cells 1-5 /hpf (0-5/HPF) Urine Bacteria None seen (None) Ur Culture Indicated? Cult not indicated Vol Urine Centrifuged 10ml (spun) Point of care testing: Point of Care Testing Test Results Negative Urine Dip Bedside Urine Glucose Negative Bedside Urine Bilirubin + 1 Bedside Urine Ketone - Negative Urine Specific [place] 1.010 Bedside Urine Occult Blood - Negative Bedside Urine pH 7.5 Bedside Urine Protein +/- 15 Bedside Urine Urobilinogen - Negative Bedside Urine Nitrite - Negative Bedside Urine Leukocytes - Negative Esterase Imaging Data CT scan - abdomen/pelvis: Radiologist's Impression: [address] [address] [address] Scan Report Signed Patient: Lsaha Little MR#: [id number] : 1995 Acct:[id number] Age/Sex: 29 / F Date of Service: 10/15/24 Loc: ED Accession Number: [id number] Procedure: CT abdomen pelvis w con Ordering Provider: Jorge Alberto Preez MD PROCEDURE: CT ABDOMEN PELVIS W CON INDICATIONS: IV contrast only/Right-sided pain TECHNIQUE: After the administration of intravenous contrast, axial sections acquired from the lung bases to the pubic symphysis. Coronal and sagittal reformats were performed. For radiation dose reduction, the following was used: automated exposure control, adjustment of mA and/or kV according to patient size. COMPARISON: None. FINDINGS: Image quality: Diagnostic. Lower Chest: No significant findings. ABDOMEN: Liver: No solid mass. Mild diffuse hepatic steatosis. Gallbladder: No radiopaque gallstones or wall thickening. Biliary ducts: No biliary dilation. Pancreas: No ductal dilation. Spleen: Size is within normal limits. Adrenal Glands: No adrenal nodules. Kidneys and Ureters: No hydronephrosis. No solid mass. No complex renal cystic lesion which requires follow up. Stomach and Bowel: Normal colonic caliber, without significant wall thickening. Normal appendix. Elongated colon with cecum in the lower pelvis. Peritoneum: No abnormal intraperitoneal fluid. No free air. Ventral Wall: No significant ventral hernia. Abdominal Nodes: No retroperitoneal or mesenteric adenopathy by size criteria. Vessels: Aorta and inferior vena cava are normal in size. PELVIS: Pelvic Organs: Unremarkable. Bladder: No bladder wall thickening, accounting for underdistention. Pelvic Nodes: No enlarged lymph nodes. Miscellaneous: No inguinal hernias are seen. Bones: No aggressive osseous abnormality. IMPRESSION: 1. Normal appendix. 2. No acute abdominal process identified. Dictated by: Sandip Sparrow M.D. on 10/15/2024 at 9:09 Approved by: Sandip Sparrow M.D. on 10/15/2024 at 9:12 US - abdomen: Radiologist's Impression: [address] [address] Ultrasound Report Signed Patient: Lasha Little MR#: [id number] : 1995 Acct:[id number] Age/Sex: 29 / F Date of Service: 10/15/24 Loc: ED Accession Number: [id number] Procedure: US abdomen limited Ordering Provider: Jorge Alberto Perez MD PROCEDURE: US ABDOMEN LIMITED INDICATIONS: RUQ PAIN TECHNIQUE: Real-time scanning was performed of the abdominal and retroperitoneal organs, with image documentation. COMPARISON: [facility], CT, CT ABDOMEN PELVIS W CON, 10/15/2024, 8:13. FINDINGS: Liver: Liver is normal in size and mildly increased in echotexture. Gallbladder: Small gallstones are present in the gallbladder, including the gallbladder neck. The gallbladder is somewhat distended. There is no gallbladder wall thickening or pain on examination or fluid around the gallbladder. Biliary ducts: Intrahepatic bile ducts are non-dilated. Extrahepatic bile duct caliber measures 5 mm. Normal is 6-7 mm or less in diameter, or 10 mm or less post-cholecystectomy. Pancreas: Visualized portions of the pancreas are sonographically normal. Miscellaneous: No free abdominal fluid. IMPRESSION: Cholelithiasis without CT evidence of acute cholecystitis. Mild diffuse hepatic steatosis, confirmed on CT. Dictated by: Sandip Sparrow M.D. on 10/15/2024 at 11:44 Approved by: Sandip Sparrow M.D. on 10/15/2024 at 11:47 [facility] Narrative Medical decision making narrative: Patient here for right-sided abdominal pain radiating to right mid back. Has had nausea and vomiting since 1:00 a.m. this morning. Has had off and on right upper quadrant pain for the past couple of months. Denies any prior abdominal surgical history. No urinary complaints. Denies . After history and exam CBC CMP urinalysis test lipase morphine Zofran normal saline CT abdomen pelvis [facility] Medical records reviewed: No recent visit for this complaint Differential considered: Includes but not limited to appendicitis cholecystitis cholelithiasis choledocholithiasis pancreatitis Lab Test results independently reviewed as above. Pertinent findings: Negative test, WBC 14.5 Imaging studies independently reviewed: CT abdomen pelvis no acute finding, ultrasound gallbladder cholelithiasis without cholecystitis. Consultations: 11:[address] Payton, general surgeon, he is reviewed imaging and laboratory studies. Patient can follow up in the office within the next week for elective surgery for cholecystectomy. Treatments: Morphine Zofran normal saline Re-evaluations: 9:22 a.m.. Updated patient has been results. They are reassuring. Pain-free nausea free. Ultrasound gallbladder will be ordered. 11:55 a.m.. Updated patient my discussion with surgeon. at bedside. Patient is pain-free. They do agree for discharge home and they will call Dr. Payton office for scheduling outpatient surgery. She does not want opiate medication as she is . Dietary changes no fried fatty greasy foods reviewed with her. Discussion: Appropriate for discharge home exam and laboratory studies are reassuring. Pain-free at time of discharge. Return precautions reviewed. General surgery was consulted. Patient desires discharge home. Work note provided. Diagnosis: Cholelithiasis Discharge Plan Departure Patient Disposition: Home Clinical Impression: Cholelithiasis Qualifiers: Cholelithiasis location: gallbladder Cholecystitis presence: without cholecystitis Biliary obstruction: without biliary obstruction Qualified Code(s): K80.20 - Calculus of gallbladder without cholecystitis without obstruction Instructions: DI for Gallstones Activity Restrictions/Additional Instructions: Please call provided general surgery office today for office appointment time to schedule re-evaluation and possible surgery for your gallbladder removal. In the meantime, no fried fatty greasy foods or spicy foods. Return immediately if worse if any questions or concerns. Work note has been provided for you. Prescriptions: New hydrocodone-acetaminophen 5-325 mg tablet 1 tab PO Q6H PRN (Reason: pain) Qty: 10 0RF ondansetron 4 mg tablet,disintegrating 4 mg PO Q8H PRN (Reason: nausea and vomiting) Qty: 10 0RF No Action ferrous sulfate 325 mg (65 mg iron) tablet 325 mg PO Q OTHER DAY 90 Days Qty: 45 1RF vit-ferrous sulfat-FA 27 mg iron- 0.8 mg tablet PO docusate sodium 100 mg Capsule 100 mg PO DAILY Qty: 30 1RF ibuprofen 600 mg Tablet 600 mg PO Q6HR PRN (Reason: Pain, Mild (1-3)) Qty: 60 1RF Purelan Cream 1 applic topical PRN PRN (Reason: Tenderness) Qty: 7 2RF Referrals: Jermaine Saldivar MD [Primary Care Provider] - Jaya Payton MD [Physician] - Stand Alone Forms: Patient Portal/API/Survey, Work Release Note
[2024-10-15 08:11] LABS: Add Manual Diff / Slide Review NO; Basophils Absolute Auto 100 /uL (0-100); Basophils Percent Auto 0.6 % (0-2); Eosinophils Absolute Auto 0 /uL (0-450); Eosinophils Percent Auto 0.2 % (2-4); Hemoglobin 12.2 g/dL (12.0-16.0); Lymphocytes Absolute Auto 1600 /uL (1100-4500); Lymphocytes Percent Auto 11.1 % (25-40); Mean Corpuscular HGB Conc 32.2 % (30-36); Mean Corpuscular Hemoglobin 27.5 PG (26-34); Mean Corpuscular Volume 85.5 fL (80-100); Monocytes Absolute Auto 500 /uL (0-900); Monocytes Percent Auto 3.8 % (3-14); Neutrophils Absolute Auto 12200 /uL (1500-7000); Neutrophils Percent Auto 84.3 % (50-75); Platelet Count 355 X10^3/uL (150-400); Red Blood Cell Count 4.45 X10^6/uL (4.0-5.2); Red Cell Distribution Width 15.2 % (11.6-14.8); White Blood Cell Count 14.5 X10^3/uL (4.5-11.0)
--- NOTE | 2024-10-15 08:15 | DI.CT.S_ITS ---
PROCEDURE: CT ABDOMEN PELVIS W CON INDICATIONS: IV contrast only/Right-sided pain TECHNIQUE: After the administration of intravenous contrast, axial sections acquired from the lung bases to the pubic symphysis. Coronal and sagittal reformats were performed. For radiation dose reduction, the following was used: automated exposure control, adjustment of mA and/or kV according to patient size. COMPARISON: None. FINDINGS: Image quality: Diagnostic. Lower Chest: No significant findings. ABDOMEN: Liver: No solid mass. Mild diffuse hepatic steatosis. Gallbladder: No radiopaque gallstones or wall thickening. Biliary ducts: No biliary dilation. Pancreas: No ductal dilation. Spleen: Size is within normal limits. Adrenal Glands: No adrenal nodules. Kidneys and Ureters: No hydronephrosis. No solid mass. No complex renal cystic lesion which requires follow up. Stomach and Bowel: Normal colonic caliber, without significant wall thickening. Normal appendix. Elongated colon with cecum in the lower pelvis. Peritoneum: No abnormal intraperitoneal fluid. No free air. Ventral Wall: No significant ventral hernia. Abdominal Nodes: No retroperitoneal or mesenteric adenopathy by size criteria. Vessels: Aorta and inferior vena cava are normal in size. PELVIS: Pelvic Organs: Unremarkable. Bladder: No bladder wall thickening, accounting for underdistention. Pelvic Nodes: No enlarged lymph nodes. Miscellaneous: No inguinal hernias are seen. Bones: No aggressive osseous abnormality. IMPRESSION: 1. Normal appendix. 2. No acute abdominal process identified. Dictated by: Sandip Sparrow M.D. on 10/15/2024 at 9:09 Approved by: Sandip Sparrow M.D. on 10/15/2024 at 9:12
[2024-10-15 08:23] LABS: Alanine Aminotransferase 23 IU/L (<35); Albumin 4.9 g/dL (3.5-5.0); Albumin Globulin Ratio 1.3 (1.0-2.8); Alkaline Phosphatase 69 U/L (38-126); Aspartate Aminotransferase 24 IU/L (14-36); Bilirubin Total 0.4 mg/dL (0.2-1.3); Blood Urea Nitrogen 12 mg/dL (7-17); Calcium 9.3 mg/dL (8.4-10.2); Carbon Dioxide 25 mmol/L (22-32); Chloride 107 mmol/L (98-107); Estimated Glomerular Filt Rate > 60 mL/min (>60); Globulin 3.8 g/dL (1.7-4.1); Glucose 121 mg/dL (70-100); HEMOLYSIS < 15 (0-50); Lipase 175 U/L (23-300); Potassium 4.5 mmol/L (3.4-5.1); Sodium 140 mmol/L (137-145); Total Protein 8.7 g/dL (6.3-8.2)
[2024-10-15] MEDS: MORPHINE 4 MG/ML INJ IV (08:46)
[2024-10-15] MEDS: ONDANSETRON 4 MG/2 ML INJ IV (08:46)
[2024-10-15] MEDS: SODIUM CHLORIDE 0.9% 500 ML 1000 ML IV (08:47)
[2024-10-15 09:04] LABS: Ictotest Urine Negative (Negative)
[2024-10-15 09:16] LABS: Urine Volume 10mL (spun)
--- NOTE | 2024-10-15 09:19 | DI.US.S_ITS ---
PROCEDURE: US ABDOMEN LIMITED INDICATIONS: RUQ PAIN TECHNIQUE: Real-time scanning was performed of the abdominal and retroperitoneal organs, with image documentation. COMPARISON: [facility], CT, CT ABDOMEN PELVIS W CON, 10/15/2024, 8:13. FINDINGS: Liver: Liver is normal in size and mildly increased in echotexture. Gallbladder: Small gallstones are present in the gallbladder, including the gallbladder neck. The gallbladder is somewhat distended. There is no gallbladder wall thickening or pain on examination or fluid around the gallbladder. Biliary ducts: Intrahepatic bile ducts are non-dilated. Extrahepatic bile duct caliber measures 5 mm. Normal is 6-7 mm or less in diameter, or 10 mm or less post-cholecystectomy. Pancreas: Visualized portions of the pancreas are sonographically normal. Miscellaneous: No free abdominal fluid. IMPRESSION: Cholelithiasis without CT evidence of acute cholecystitis. Mild diffuse hepatic steatosis, confirmed on CT. Dictated by: Sandip Sparrow M.D. on 10/15/2024 at 11:44 Approved by: Sandip Sparrow M.D. on 10/15/2024 at 11:47
[2024-10-15 09:23] LABS: Bacteria Urine None Seen; RBC Urine None Seen (0-5/HPF); WBC Urine 0-1/HPF (0-5/HPF)
[2024-10-15 09:24] LABS: Culture Indicated Urine Cult Not Indicated; Squamous Epithelial Cell Urine 1-5 /HPF (0-5/HPF)
== END 2024-10-15 12:04 | disposition home or self-care (01) ==
PROVIDERS: Emergency Provider Emergency Medicine; PCP Family Medicine
DX: K80.20 Calculus of gallbladder without cholecystitis without obstruction (principal)
CPT/HCPCS: 36415; 74177; 76705; 80053; 81003; 81015; 81025; 83690; 85025; 96361; 96374; 96375; 99284; J2270; J2405; Q9967